=== PATIENT | male | born 1980 | race Caucasian/White ===

== ENCOUNTER 2016-09-11 14:57 | Emergency (ER) | payer OTHER ==
[2016-09-11 15:29] VITALS: BP 136/87; PULSE 86; RESP 18; TEMP 98.1; O2SAT 95
--- NOTE | 2016-09-11 15:51 | UCPHY ---
H & P Time Seen by Provider: 09/11/16 15:13 Patient Type: New HPI/ROS: CHIEF COMPLAINT: Cough congestion x1 week HISTORY OF PRESENT ILLNESS: 36-year-old immunocompetent male complaining of 1 week of nasal congestion which has now resolved now complaining nonproductive cough. No dyspnea. No chest pain. No back pain. No abdominal pain. No nausea or vomiting. No dizziness. No syncope or near syncope. PRIMARY CARE PROVIDER:Dr. Aby Panchal REVIEW OF SYSTEMS: A ten point review of systems was performed and is negative with the exception of the items mentioned in the HPI PAST MEDICAL & SURGICAL HISTORY: No pertinent medical or surgical history SOCIAL HISTORY: nonsmoker PHYSICAL EXAM (Prior to examination, patient consented to physical exam, hands were washed and my usual and customary physical exam procedures followed) 1) GENERAL: Well-developed, well-nourished, alert and oriented. Appears to be in no acute distress. 2) HEAD: Normocephalic, atraumatic 3) HEENT: Pupils equal, round, reactive to light bilaterally. Sclera anicteric. Nasopharynx, oropharynx, clear, no lesions. Ears bilaterally with normal tympanic membranes. 4) NECK: Full range of motion, no meningeal signs. No adenopathy 5) LUNGS: Clear auscultation bilaterally, no wheezes, no rhonchi, no retractions. 6) HEART: Regular rate and rhythm, no murmur, no heave, no gallop. 7) ABDOMEN: No guarding, no rebound, no focal tenderness, negative McBurney's, negative Biggs's, negative Rovsing's, negative peritoneal sign, 8) MUSCULOSKELETAL: Moving all extremities, no focal areas of tenderness, no obvious trauma. No peripheral edema or discoloration. 9) BACK: no visual or palpable abnormality. 10) SKIN: No rash, no petechiae. 11) Psychiatric: Patient is oriented X 3, there is no agitation. DIFFERENTIAL DIAGNOSIS: no particular order including but limited to sinusitis , bronchitis, pneumonia Smoking Status: Never smoked Constitutional: Initial Vital Signs Temperature (C) 36.7 C 09/11/16 15:27 Heart Rate 86 09/11/16 15:27 Respiratory Rate 18 09/11/16 15:27 Blood Pressure 136/87 H 09/11/16 15:27 O2 Sat (%) 95 09/11/16 15:27 O2 Delivery Mode Room Air Allergies/Adverse Reactions: No Known Allergies Allergy (Unverified 09/11/16 15:26) Home Medications: Medication Instructions Recorded AZITHROMYCIN [Z-PACK] 500 mg PO DAILY #1 packet 09/11/16 Albuterol [Proventil Inhaler HFA 1 - 2 puffs IH Q4PRN PRN #1 mdi 09/11/16 (*)] Skin Cream 09/11/16 MDM/Departure - Depart Disposition: Home, Routine, Self-Care Clinical Impression: Upper respiratory infection Qualifiers: URI type: unspecified URI Qualifier Code: (J06.9) Acute upper respiratory infection, unspecified Condition: Good Instructions: Upper Respiratory Infection (ED) Additional Instructions: Return to the emergency department immediately for change in breathing habits, change in voice, change in swallowing habits, change in mental status, or any other symptoms that concern you. Prescriptions: Albuterol [Proventil Inhaler HFA (*)] 1 - 2 puffs IH Q4PRN PRN #1 mdi PRN Reason: Cough, Moderate AZITHROMYCIN [Z-PACK] 500 mg PO DAILY #1 packet Referrals: Aby Panchal MD [Primary Care Provider] - 2-3 days, call for appt. - PQRS PQRS Measurement: Not applicable
== END 2016-09-11 16:02 | disposition home or self-care (01) ==
LOC: CED 14:57
DX: J06.9 Acute upper respiratory infection, unspecified (principal)
CPT/HCPCS: G0463-PO

== ENCOUNTER → 2018-02-20 | Outpatient (CLI) | payer OTHER | LOC: CIMAGING 10:04 | PROVIDERS: ATTEND Family Medicine | DX: R10.9 Unspecified abdominal pain (principal); R35.0 Frequency of micturition | CPT/HCPCS: 74018-PO ==